=== PATIENT | male | born 1965 | race Caucasian/White ===

== ENCOUNTER 2020-11-26 14:22 | Emergency (ER) | payer SELFPAY ==
[2020-11-26] VITALS (41 sets, daily range): BP systolic 132–152; BP diastolic 69–105; PULSE 103–124; RESP 0–30; TEMP 36.8; O2SAT 72–100
--- NOTE | ~2020-11-26 | XR_ITS ---
EXAMINATION: XR chest 1V portable DATE: 11/26/2020 14:52 INDICATION: Shortness of breath TECHNIQUE: frontal view of the chest was obtained. COMPARISON: None FINDINGS: Opacities in the right mid to lower lung zone consistent with small to moderate-sized right pleural e ffusion and associated atelectasis and/or pneumonia. Mild atelectasis/scarring at the left costophren ic angle. No pneumothorax or left-sided pleural effusion. Right heart border is obscured. The remaind er the cardiomediastinal silhouette is normal. Multiple old left-sided rib fractures. IMPRESSION: 1. Small to moderate right pleural effusion with associated right basilar atelectasis and/or pneumoni a. Reviewed, dictated and finalized at location A. IMPRESSION: 1. Small to moderate right pleural effusion with associated right basilar atele ctasis and/or pneumonia.
--- NOTE | ~2020-11-26 | CT_ITS ---
EXAMINATION: CTA chest PE protocol DATE: 11/26/2020 16:18 INDICATION: Shortness of breath. Positive d-dimer TECHNIQUE: Computed tomography (CT) pulmonary angiogram of the chest was performed with 100 mL Omnipa que-350 intravenous contrast. Additional 3D reconstructions utilizing coronal maximum intensity proje ction (MIP) were performed. Automated exposure control and iterative reconstruction technique were em ployed. The dose-length product was 625.76 mGy-cm. COMPARISON: None FINDINGS: Excellent contrast opacification of the pulmonary arteries. There is mild streak artifact from dense contrast in the superior vena cava and right atrium. Moderate scattered respiratory motion artifact. There is decreases sensitivity in the segmental and subsegmental pulmonary arteries. No pulmonary emb olism. Severe emphysema. Moderate to large right pleural effusion with collapse of the right middle a nd lower lobes and atelectasis along the caudal aspect of the right upper lobe. Nonsegmental region o f septal line thickening and groundglass opacity in the left lower lobe most likely pulmonary edema o r pneumonia. Mild discoid atelectasis at the lingula. No pneumothorax or left-sided pleural effusion. Heart size is normal. Atherosclerotic coronary artery calcification. Thoracic aorta is normal in jhon iber with no dissection. Small sliding-type hiatal hernia. Wall thickening in the distal esophagus. M ild likely reactive right hilar lymphadenopathy. Diffuse hepatic steatosis with liver surface nodular ity consistent with cirrhosis. There is thickening of the partially visualized right adrenal gland. E nlargement of the visualized portion of the spleen which measures up to 13.6 cm in maximal transaxial length. This along with moderate thoracic spondylosis. Gastroesophageal varices consistent with port al venous hypertension. Multiple old bilateral rib fractures a few of which are chronically nonunited . IMPRESSION: 1. No pulmonary embolism. 2. Severe emphysema. 3. Moderate to large right pleural effusion with collapse of the right lower and middle lobes. 4. Ground glass opacities and septal line thickening in the left lower lobe which could represent pul monary edema or pneumonia. 5. Likely reactive mild right hilar lymphadenopathy. 6. Diffuse hepatic steatosis and cirrhosis 7. Likely secondary pulmonary venous hypertension with splenomegaly and gastroesophageal varices. 8. Small sliding-type hiatal hernia with wall thickening the distal esophagus which could be related to the varices, reflux or other esophagitis. Reviewed, dictated and finalized at location A. IMPRESSION: 1. No pulmonary embolism. 2. Severe emphysema. 3. Moderate to large right pleural effusion with collapse of the right lower an d middle lobes. 4. Ground glass opacities and septal line thickening in the left lower lobe whi ch could represent pulmonary edema or pneumonia. 5. Likely reactive mild right hilar lymphadenopathy. 6. Diffuse hepatic steatosis and cirrhosis 7. Likely secondary pulmonary venous hypertension with splenomegaly and gastroe sophageal varices. 8. Small sliding-type hiatal hernia with wall thickening the distal esophagus w hich could be related to the varices, reflux or other esophagitis.
--- NOTE | 2020-11-26 14:26 | ECG_ITS ---
Measurements Intervals [place] Rate: 109 P: 48 NH: 161 QRS: -61 QRSD: 98 T: 8 QT: 360 QTc: 485 Interpretive Statements SINUS TACHYCARDIA LEFT AXIS DEVIATION BORDERLINE R WAVE PROGRESSION, ANTERIOR LEADS BORDERLINE T WAVE ABNORMALITY- INFERIOR LEADS BASELINE ARTIFACT- I, II, AVR, AVL, AVF, V1-V6 ABNORMAL ECG Electronically Signed On 11-27-2020 19:10:11 CDT by Avinash Aguilar D.O.
--- NOTE | 2020-11-26 14:39 | PC.NURSE ---
O2 delivery decreased from 15L NRB to 5L/NC. SpO2 maintaining above 95%.
[2020-11-26 15:00] LABS: Basophils Absolute Auto 0.1 K/mm3 (0.0-0.1); Basophils Percent Auto 0.9 % (0.2-1.2); Eosinophils Percent Auto 0.4 % (0-4.4); Hematocrit 42.2 % (42.0-52.0); Immature Granulocyte Absolute 0.03 K/mm3 (0.00-0.031); Immature Granulocyte Percent A 0.4 % (0-0.5); Lymphocytes Absolute Auto 0.67 K/mm3 (0.9-3.2); Lymphocytes Percent Auto 9.8 % (18.3-44.2); Mean Corpuscular HGB Conc 33.2 g/dl (32-36); Mean Corpuscular Hemoglobin 34.7 pg (26-34); Mean Corpuscular Volume 104.7 fl (80-100); Mean Platelet Volume 10.5 fl (7.4-10.4); Monocytes Absolute Auto 0.9 K/mm3 (0.1-0.6); Monocytes Percent Auto 12.7 % (2.6-8.5); Neutrophils Absolute Auto 5.2 K/mm3 (1.3-6.7); Neutrophils Percent Auto 75.8 % (45.5-73.1); Platelet Count Result 121 k/mm3 (150-375); Red Blood Count 4.03 M/mm3 (4.6-6.20); Red Cell Distribution Width 15.4 % (11.5-14.5); White Blood Count 6.9 K/mm3 (4.5-10.0)
--- NOTE | 2020-11-26 15:04 | ED.GENADULT ---
HPI - General Adult General Chief complaint: Shortness of Breath/Dyspnea Stated complaint: SOB Time Seen by Provider: 11/26/20 14:30 Source: patient and family Mode of arrival: wheelchair Limitations: no limitations History of Present Illness HPI narrative: Patient presents for evaluation of difficulty breathing. He states he has experienced SOB with productive cough of pinto sputum. He smokes 2 ppd but does not have a formal diagnosis of COPD. Sister here in department provides majority of history of presenting illness. She indicates that pt was homeless for many years, living in [place]. His friends arranged for him to move back to the area. Jointly, they live in a home which has been into several apartments and he lives in his unit alone. He states it has been challenging for him to ambulate the last few days due to respiratory symptoms. He denies any fever or chills. He does report swelling in both lower extremities, right greater than left. He is also experienced nausea and vomiting. He admits to being an alcoholic, consuming 1 pint of vodka or whiskey per day. He admits to having cirrhosis of the liver. Last EtOH use was 2 days ago. He is not on any home medications. He has been using albuterol nebs three times per day and his albuterol inhaler about 6 times per day. No prior infection with Covid. He has not received COVID vaccination. No additional complaints or concerns. Nursing staff informed me that upon his arrival here his saturations were in the 70's on room air. He is not on home O2. He was placed on 5 L of oxygen per nasal cannula and his saturations normalized. Related Data Home Medications Medication Instructions Recorded Confirmed No Home Medications 11/26/20 11/26/20 Allergies Allergy/AdvReac Type Severity Reaction Status Date / Time No Known Allergies Allergy Verified 11/26/20 14:34 Review of Systems Review of Systems: Narrative: CONSTITUTIONAL: Denies fever, chills, or sweats. EYES: Denies visual changes, redness, or discharge. ENT: Denies rhinorrhea, congestion, sore throat, or otalgia. CARDIOVASCULAR: Reports new onset swelling in both lower extremities, right greater than left. Denies chest pain, palpitations. RESPIRATORY: Reports shortness of breath and productive cough of pinto sputum GASTROINTESTINAL: Reports nausea and vomiting. Denies abdominal pain or diarrhea. GENITOURINARY: Denies dysuria or hematuria. SKIN: Denies rash or itching. MUSCULOSKELETAL: Denies back pain, joint pain, or myalgia. NEUROLOGIC: Denies headache, numbness, dizziness, or weakness. PSYCHIATRIC: Reports anxiety. Denies depression. [facility] Past Medical History Medical History Alcoholism Cirrhosis Tobacco use Surgical History Surgical History No pertinent past surgical history Social History Social History Smoking packs per day: 2 Smoking cigarettes per day: 40.0 Smoking status: Current every day smoker Alcohol intake: current Alcohol use details: 1 pint of vodka/whiskey per day. Substance use: never Living arrangements: alone Occupation/Education: unemployed Gender identity (if verbalized by the patient): Male Spiritual care concerns: No Exam Narrative: Exam Narrative: GENERAL: Appears chronically ill HEAD: Normocephalic, atraumatic. EYES: PERRLA and EOMI. ENT: Nares clear, no rhinorrhea or epistaxis. Mucous membranes moist. Oropharynx without tonsillar hypertrophy exudate or other lesions. Bilateral TMs pearly pinto nonbulging NECK: Supple. No adenopathy or masses. No carotid bruits or JVD CHEST: Increased respiratory effort. Lungs bilaterally diminished. RR 28. O2 at 5 L NC HEART: Rate 115. Regular rhythm. No murmur heard. Normal peripheral pulses. ABDOMEN: Soft, nontender, nondistended, normal active bowel sounds. EXTREMITIES:2+ pitting
[2020-11-26 15:12] LABS: Anion Gap 7 mmol/L (8-16); Blood Urea Nitrogen 16 mg/dL (9-20); Calcium 8.6 mg/dL (8.4-10.2); Carbon Dioxide 33 mmol/L (22-30); Chloride 96 mmol/L (98-107); Estimated CRCL calculation 135 ml/min; Estimated Glomerular Filt Rate > 60; Glucose 142 mg/dL (75-110); Potassium 3.5 mmol/L (3.4-5.0); Sodium 136 mmol/L (137-145)
[2020-11-26] MEDS: LORazepam INJ (*CRX) 2 MG/ML VIAL 1 MG IV PUSH (15:14)
[2020-11-26] MEDS: methylPREDNISolone SOD SUCC 125 MG VIAL IV PUSH (15:15)
[2020-11-26] MEDS: SODIUM CHLORIDE 0.9% IV 1,000 ML 100 ML IV CONT (15:15)
[2020-11-26] MEDS: ALBUTEROL SULFATE NEB 2.5 MG/3 ML INH INHALATION (15:15)
[2020-11-26 15:18] LABS: Lactic Acid Reflex 2.3 mmol/L (0.7-2.1)
--- NOTE | 2020-11-26 15:19 | PC.NURSE ---
RT at bedside for chrissy colindres
[2020-11-26 15:21] LABS: Alanine Aminotransferase 24 U/L (4-50); Albumin Level 3.5 g/dL (3.5-5.1); Alkaline Phosphatase 186 U/L (38-126); Aspartate Amino Transferase 78 U/L (17-59); Bilirubin Direct 0.2 mg/dL (0-0.3); Bilirubin,Total 3.4 mg/dL (0.2-1.3)
[2020-11-26 15:22] LABS: INR 1.2; Partial Thromboplastin Time 33.7 SECONDS (22.3-36.8); Prothrombin Time 15.4 Seconds (11.1-14.7)
[2020-11-26 15:25] LABS: D Dimer 0.67 ug/mL (<0.48)
[2020-11-26 15:34] LABS: NT Pro B Type Natriuretic Pept 149 pg/mL (5-100); Troponin I < 0.012 ng/mL (0.000-0.034)
[2020-11-26] MEDS: FOLIC ACID 1 MG TABLET PO (17:10)
[2020-11-26] MEDS: THERAPEUTIC MULTIVITAMINS/MINERALS TAB (*BKC) 1 TABLET PO (17:10)
[2020-11-26 18:10] LABS: Reflex Lactic Acid Yes or No Add Lactic
[2020-11-26 18:52] LABS: Lactic Acid 1.4 mmol/L (0.7-2.1)
[2020-11-26 19:04] LABS: Troponin I < 0.012 ng/mL (0.000-0.034)
[2020-11-26] MEDS: THIAMINE HCL 100 MG TABLET PO (19:58)
[2020-11-27] VITALS (50 sets, daily range): BP systolic 107–161; BP diastolic 71–107; PULSE 100–121; RESP 15–40; O2SAT 89–98
--- NOTE | 2020-11-27 03:44 | PC.NURSE ---
This RN called [facility] transfer center for update on pt's bed assignment at [facility]. Per RN at receiving facility, . [facility] RN also assured that she would give [facility] a phone call as soon as bed was available. Charge nurse and ED MD notified. pt updated on plan of care and moved from ED stretcher to hospital bed. With ANY minimal activity, pt becomes diaphoretic and short of breath with decreased O2 sats. Pt O2 at 4L per NC.
--- NOTE | 2020-11-27 04:36 | PC.NURSE ---
Report to Nichelle at [facility]. Pt admitted to ROOM 412; [facility].
--- NOTE | 2020-11-27 04:38 | PC.NURSE ---
[facility] accepted transfer to [facility] direct admit ETA [id number] Trip# [id number]
--- NOTE | 2020-11-27 06:10 | PC.NURSE ---
awaiting EMS transport to [facility]. pt sitting upright; remains on caridac monitor and on 4L O2 per NC.
[2020-11-28 13:55] LABS: SARS-CoV-2 RNA PCR Negative
== END 2020-11-27 07:21 | disposition short-term general hospital (02) ==
PROVIDERS: Emergency Provider Nurse Practitioner
DX: A41.9 Sepsis, unspecified organism (principal); J18.9 Pneumonia, unspecified organism; J96.01 Acute respiratory failure with hypoxia; R22.2 Localized swelling, mass and lump, trunk; Z20.822 Contact with and (suspected) exposure to COVID-19; K74.60 Unspecified cirrhosis of liver; F10.20 Alcohol dependence, uncomplicated; F17.210 Nicotine dependence, cigarettes, uncomplicated; J44.1 Chronic obstructive pulmonary disease with (acute) exacerbation; R00.0 Tachycardia, unspecified; R94.31 Abnormal electrocardiogram [ECG] [EKG]
CPT/HCPCS: 36415; 71045; 71275; 80048; 80076; 83605; 83880; 84484; 85025; 85055; 85380; 85610; 85730; 87040; 93005; 94640; 96365; 96367; 96375; 99285; A9270; C9803; J0456; J0696; J2060; J2930; J7030; Q9967; U0003; U0005